=== PATIENT | female | born 1940 | race Caucasian/White ===

== ENCOUNTER 2024-04-06 06:54 | Emergency (ER) | payer OTHER, MEDICAID | END 2024-04-06 08:37 | disposition home or self-care (01) | LOC: CSHERS 06:54 | DX: S00.03XA Contusion of scalp, initial encounter (principal); W19.XXXA Unspecified fall, initial encounter | CPT/HCPCS: 70450; 72125 ==

== ENCOUNTER 2024-04-11 13:47 | Outpatient (CLI) | payer OTHER, MEDICAID | END 2024-04-11 13:48 | disposition home or self-care (01) | LOC: CSHMAMMO 13:47 | PROVIDERS: ATTEND Family Medicine | DX: Z12.31 Encounter for screening mammogram for malignant neoplasm of breast (principal); Z91.89 Other specified personal risk factors, not elsewhere classified | CPT/HCPCS: 77063; 77067 ==